=== PATIENT | female | born 2000 | race Two or more races ===

== ENCOUNTER 2020-09-25 14:59 | Emergency (ER) | payer OTHER ==
[~2020-09-25] VITALS: Ht 160 cm; Wt 51.0 kg
[2020-09-25 15:15] VITALS: BP 139/85
[2020-09-25] MEDS ORDERED: SODIUM CHLORIDE 0.9% 1,000 ML IV ONE (17:00)
[2020-09-25] MEDS ORDERED: ONDANSETRON 4MG ODT PO STA (17:06)
== END 2020-09-25 18:06 | disposition left against medical advice (07) ==
LOC: ER 14:59
DX: R68.89 Other general symptoms and signs (principal); Z53.21 Procedure and treatment not carried out due to patient leaving prior to being seen by health care provider
CPT/HCPCS: J7030